=== PATIENT | male | born 1980 | race Caucasian/White ===

== ENCOUNTER → 2018-01-02 14:48 | Outpatient (CLI) | payer BC | END | disposition home or self-care (01) | LOC: D.CT 14:48 | DX: R10.9 Unspecified abdominal pain (principal) ==

== ENCOUNTER → 2018-04-14 09:01 | Outpatient (CLI) | payer BC | END | disposition home or self-care (01) | LOC: D.NM 09:01 | DX: R10.11 Right upper quadrant pain (principal) ==

== ENCOUNTER → 2018-04-23 14:32 | Outpatient (CLI) | payer BC | END | disposition home or self-care (01) | LOC: D.MRI 14:32 | DX: M54.6 Pain in thoracic spine (principal) ==